=== PATIENT | male | born 1970 | race Caucasian/White ===

== ENCOUNTER 2017-01-21 16:08 | Emergency (ER) | payer SELFPAY ==
[2017-01-21] MEDS ORDERED: Sodium Bicarbonate (8.4%) 50 mEq Vial ONE (16:10)
--- NOTE | 2017-01-21 16:35 | C.PDOC ---
History Of Present Illness Patient VANITA after cardiac arrest while he was working in the yard (breaking up rocks/concrete). As per EMS, patient was down approx 15 prior to their arrival , was in PEA, intubated and given 3 epis in the field. Arrest witnessed by family. Patient arrives to ED in PEA with CPR in progress. PMHx of CABG (4x bypass). Time Seen by Provider: 01/21/17 16:31 Chief Complaint (Nursing): Cardiac Arrest History Per: EMS Reason For Code Blue: Full Arrest Circumstances: Brought To ED By EMS Arrest Witnessed By: Family CPR Initiated Prior To MD Arrival?: Yes Down-Time Before ACLS: Mins (45min) Treatment Initiated Prior To MD Arrival: Yes: CPR, BVM Ventilations, Intubation , IVF, ACLS Medication Initiation, IV Access Medications Given Prior To MD Arrival: Yes: Epinephrine (x5) - Initial Findings Mentation: Unresponsive Respirations: None (Assisted) Pulse: None Rhythm: PEA Past Medical History Reviewed: Historical Data, Nursing Documentation, Vital Signs Vital Signs: Last Vital Signs Temp Pulse Resp BP Pulse Ox 0 L 01/21/17 17:25 - Medical History PMH: HTN Family History: States: No Known Family Hx - Social History Hx Alcohol Use: No Hx Substance Use: No - Immunization History Hx Tetanus Toxoid Vaccination: No Hx Influenza Vaccination: No Hx Pneumococcal Vaccination: No Review Of Systems Review Of Systems: ROS cannot be obtained secondary to pt's inabilty to answer questions. Physical Exam - Physical Exam Appears: Other (unresponsive) Skin: Other (cool and clammy) Eye(s): bilateral: Other (fixed and dilated B/L) Oral Mucosa: Other (ET tube in place, 23mm at lip line) Cardiovascular: Other (none) Respiratory: Other (equal breath sounds B/L, assisted ventilations) Gastrointestinal/Abdominal: Other (obese) Extremity: Other (left upper arm - IO tube in place) ED Course And Treatment - Laboratory Results Result Diagrams: 01/21/17 16:29 O2 Sat by Pulse Oximetry: 0 (ra) Pulse Ox Interpretation: Abnormal Progress Note: CPR continued, patient given multiple rounds of epi, in persistent PEA. IV tPA given for possible STEMI/PE - patient continued to be unresponsive, in persistent PEA. Time of called at 16:25. Patient's and children arrived in ED and are aware of . certificate done. Blood work shows elevated troponin, suspect [place] with subsequent cardiac arrest. Disposition - Disposition Disposition: WITH WITHOUT AUTOPSY Disposition Time: 16:25 Condition: Forms: [employer] ([email or web address]) - Clinical Impression Clinical Impression: Cardiac arrest, Troponin level elevated Critical Care Time - Critical Care Note Total Time (in mins): 35 Documented critical care: time excludes all time spent performing seperately billable procedures.
[2017-01-21 16:42] LABS: CHLORIDE 104 mmol/L (98-107); POTASSIUM 5.3 mmol/L (3.6-5.2); SODIUM 138 mmol/L (132-148)
[2017-01-21 16:44] LABS: BILIRUBIN,TOTAL 0.8 mg/dL (0.2-1.3); CARBON DIOXIDE 14 mmol/L (22-30); GFR AFRICAN-AMERICAN > 60
[2017-01-21 16:45] LABS: ALB/GLOB RATIO 1.2 (1.0-2.1); ALKALINE PHOSPHATASE 73 U/L (38-126); ALT/SGPT 323 U/L (21-72); AST/SGOT 255 U/L (17-59); BLOOD UREA NITROGEN 15 mg/dL (9-20); CALCIUM 8.1 mg/dl (8.6-10.4); GLUCOSE,RANDOM 284 mg/dL (75-110); TOTAL PROTEIN 6.9 g/dL (6.3-8.3)
[2017-01-21 17:26] VITALS: O2SAT 0
[2017-01-21 21:44] VITALS: BP 0/0; PULSE 0; RESP 0; TEMP 0
[2017-01-25] MEDS ORDERED: Sodium Bicarbonate (8.4%) 50 mEq Vial ONE (16:10)
== END 2017-01-21 21:43 ==
LOC: C.ER 16:08
DX: I46.9 Cardiac arrest, cause unspecified (principal); R79.9 Abnormal finding of blood chemistry, unspecified